=== PATIENT | female | born 1965 | race Asian ===

== ENCOUNTER 2018-06-10 09:35 | Outpatient (CLI) | payer BC | END 2018-06-10 19:46 | disposition home or self-care (01) | LOC: MAMMO 09:35 | DX: Z12.31 Encounter for screening mammogram for malignant neoplasm of breast (principal) ==

== ENCOUNTER 2018-11-25 17:26 | Outpatient (CLI) | payer BC ==
[2018-11-25 18:10] LABS: SODIUM 140 mmol/L (136-145)
[2018-11-25 18:15] LABS: POTASSIUM 2.3 mmol/L (3.6-5.2)
== END 2018-11-25 23:52 | disposition home or self-care (01) ==
LOC: LABW 17:26
PROVIDERS: Family Medicine
DX: E87.6 Hypokalemia (principal)
CPT/HCPCS: 36415; 80053; 82550; 82553; 84484

== ENCOUNTER 2018-11-26 10:34 | Outpatient (CLI) | payer BC ==
[~2018-11-26] VITALS: Ht 172.7 cm; Wt 95.3 kg
[2018-11-26 10:51] LABS: POTASSIUM 2.8 mmol/L (3.6-5.2)
[2018-11-26 11:05] LABS: PLATELET COUNT 341 K/uL (152-353)
[2018-11-26 12:00] VITALS: BP 127/72; TEMP 98.3
== END 2018-11-26 23:38 | disposition home or self-care (01) ==
LOC: LABW 10:34 → INF 10:34
PROVIDERS: Nurse Practitioner Family
DX: E87.6 Hypokalemia (principal)
CPT/HCPCS: 36415; 80053; 85027; 96365; 96366; J3480

== ENCOUNTER 2018-11-27 09:30 | Outpatient (CLI) | payer BC ==
[2018-11-27 09:45] LABS: PLATELET COUNT 342 K/uL (152-353)
[2018-11-27 09:49] LABS: POTASSIUM 2.5 mmol/L (3.6-5.2)
== END 2018-11-27 22:33 | disposition home or self-care (01) ==
LOC: LAB 09:30
PROVIDERS: Family Medicine
DX: E87.6 Hypokalemia (principal)
CPT/HCPCS: 36415; 80053; 85027

== ENCOUNTER 2019-09-12 15:54 | Outpatient (CLI) | payer BC | END 2019-09-12 19:40 | disposition home or self-care (01) | LOC: RAD 15:54 | DX: M25.512 Pain in left shoulder (principal) ==

== ENCOUNTER 2020-01-25 14:58 | Emergency (ER) | payer BC ==
[~2020-01-25] VITALS: Ht 172.7 cm; Wt 98.0 kg
[2020-01-25 16:26] LABS: PLATELET COUNT 296 K/uL (152-353)
[2020-01-25 17:14] LABS: POTASSIUM 2.3 mmol/L (3.6-5.2)
[2020-01-25 19:05] VITALS: BP 177/87; TEMP 98.12
== END 2020-01-25 19:05 | disposition home or self-care (01) ==
LOC: ED 14:58
PROVIDERS: Emergency Medicine
PROC: 0HQ1XZZ Repair Face Skin, External Approach (ICD-10-PCS; principal; 2020-01-25)
PROC: 0CQ10ZZ Repair Lower Lip, Open Approach (ICD-10-PCS; 2020-01-25)
DX: R55 Syncope and collapse (principal); S01.511A Laceration without foreign body of lip, initial encounter; S01.81XA Laceration without foreign body of other part of head, initial encounter; X58.XXXA Exposure to other specified factors, initial encounter; Y92.098 Other place in other non-institutional residence as the place of occurrence of the external cause
CPT/HCPCS: 80053; 81000; 85027; 90471; 90715; 93005; 99283

== ENCOUNTER 2020-02-15 03:51 | Outpatient (CLI) | payer BC | END 2020-02-15 19:01 | disposition home or self-care (01) | LOC: LABW 03:51 | DX: E87.6 Hypokalemia (principal) | CPT/HCPCS: 82088 ==

== ENCOUNTER 2020-04-24 15:14 | Outpatient (CLI) | payer BC | END 2020-04-24 19:39 | disposition home or self-care (01) | LOC: US 15:14 | PROVIDERS: ATTEND Nurse Practitioner Adult Health | DX: E26.09 Other primary hyperaldosteronism (principal); E87.6 Hypokalemia; I10 Essential (primary) hypertension ==

== ENCOUNTER 2021-04-05 07:49 | Outpatient (CLI) | payer BC | END 2021-04-05 20:12 | disposition home or self-care (01) | LOC: CT 07:49 | PROVIDERS: ATTEND Student in an Organized Health Care Education/Training Program | DX: E26.09 Other primary hyperaldosteronism (principal); E87.6 Hypokalemia | CPT/HCPCS: 36415; 82565; 84520; Q9963 ==

== ENCOUNTER 2021-04-26 13:36 | Outpatient (CLI) | payer BC | END 2021-04-26 19:03 | disposition home or self-care (01) | LOC: MAMMO 13:36 → US 14:00 → MAMMO 14:00 → US 14:30 → MAMMO 19:03 | PROVIDERS: ATTEND Nurse Practitioner Family | DX: R19.09 Other intra-abdominal and pelvic swelling, mass and lump (principal); Z12.31 Encounter for screening mammogram for malignant neoplasm of breast ==

== ENCOUNTER 2021-07-26 07:46 | Outpatient (CLI) | payer BC | END 2021-07-26 21:33 | disposition home or self-care (01) | LOC: US 07:46 | PROVIDERS: ATTEND Nurse Practitioner Family | DX: N83.292 Other ovarian cyst, left side (principal) ==

== ENCOUNTER 2022-11-19 15:23 | Outpatient (CLI) | payer OTHER ==
[2022-11-19 15:46] LABS: PLATELET COUNT 322 K/uL (152-353)
[2022-11-19 15:52] LABS: POTASSIUM 3.3 mmol/L (3.6-5.2)
== END 2022-11-19 19:04 | disposition home or self-care (01) ==
LOC: LABW 15:23
PROVIDERS: ATTEND Nurse Practitioner Family
DX: R00.8 Other abnormalities of heart beat (principal)
CPT/HCPCS: 36415; 80053; 82550; 82553; 84443; 84484; 85027; 93005